=== PATIENT | male | born 1960 | race Caucasian/White ===

== ENCOUNTER 2018-03-25 07:35 | Emergency (ER) | payer MEDICARE ==
[2018-03-25] MEDS ORDERED: Lidocaine 4% Cream 5 GM TUBE w/ Tegaderm ONE (08:33)
[2018-03-25] MEDS ORDERED: Sulfameth/Trimethoprim DS 800-160mg TAB ONE (08:42)
[2018-03-25] MEDS ORDERED: Ketorolac Tromethamine 30 MG/ML VIAL ONE (09:32)
[2018-03-25] MEDS ORDERED: Acetaminophen 500 MG TAB ONE (09:32)
== END 2018-03-25 10:00 | disposition home or self-care (01) ==
LOC: ERS 07:35
DX: J34.0 Abscess, furuncle and carbuncle of nose (principal); L03.211 Cellulitis of face; I10 Essential (primary) hypertension; Z79.899 Other long term (current) drug therapy
CPT/HCPCS: 10060; 96365; 96375; J1885; J2270; J3370

== ENCOUNTER 2018-03-26 08:48 | Emergency (ER) | payer MEDICARE ==
[~2018-03-26 08:48] MED LIST: ISOVUE-370 76%-LOCM 1 ML ONE
[2018-03-26] MEDS ORDERED: Piperacillin/Tazobactam 4.5 GM VIAL ONE (11:51)
[2018-03-26] MEDS ORDERED: Clindamycin/D5W 900 mg/50 ml Premix Bag ONE (11:51)
[2018-03-26 12:03] LABS: #Eosinphils 0.1 thou/uL (0.0-0.7); #Lymphocytes 1.1 thou/uL (1.20-3.40); #Monocytes 0.6 thou/uL (0.11-0.59); #Neutrophils 7.3 thou/uL (1.40-6.50); %Basophils 0.3 % (0.0-1.0); %Eosinophils 0.9 % (0.0-10.0); %Lymphocytes 12.3 % (21.0-51.0); %Monocytes 6.3 % (0.0-10.0); %Neutrophils 80.3 % (42.0-75.0); Hemoglobin 12.8 g/dL (14.0-18.0); Mean Corpuscular HGB CONC 35.5 g/dL (32.0-36.0); Mean Corpuscular Hemoglobin 31.8 pg (27.0-31.0); Mean Corpuscular Volume 89.8 fL (78.0-98.0); Platelet Count 172 thou/uL (130-400); RBC Distribution Width 12.4 % (11.5-14.5); Red Blood Cell (RBC) Count 4.01 mill/uL (4.70-6.10); White Blood Cell (WBC) Count 9.1 thou/uL (4.8-10.8)
[2018-03-26 12:19] LABS: ALT (SGPT) 25 U/L (8-55); AST (SGOT) 17 U/L (5-34); Albumin 4.3 g/dL (3.5-5.0); Alkaline Phosphatase 121 U/L (40-150); Anion Gap 14 mmol/L (10-20); BUN (Urea Nitrogen) 18 mg/dL (8.4-25.7); Bilirubin, Total 0.8 mg/dL (0.2-1.2); Calc. Creatinine Clearance 0 mL/min (70-130); Calcium 9.8 mg/dL (7.8-10.44); Carbon Dioxide 22 mmol/L (22-29); Chloride 101 mmol/L (98-107); Estimated GFR-MDRD 56; Globulin 3.3 g/dL (2.4-3.5); Glucose 98 mg/dL (70-105); Potassium 3.5 mmol/L (3.5-5.1); Protein, Total 7.6 g/dL (6.0-8.3); Sodium 133 mmol/L (136-145)
[2018-03-26 12:29] LABS: Bilirubin Negative (Negative); Blood, Urine Negative (Negative); Clarity CLEAR (Clear); Glucose, Urine (Dipstick) Negative (Negative); Leukocyte Moderate (Negative); Nitrite Negative (Negative); Protein, Urine (Dipstick) Negative (Neg-Trace); Specific Gravity, Urine 1.006 (1.002-1.036); Urobilinogen 0.2 mg/dL (0.2-1.0)
[2018-03-26 12:31] LABS: Bacteria/HPF None Seen HPF (None Seen); Hyaline Casts/LPF 0-3 HYALINE CAST LPF (0-3 Hyaline); RBC/HPF 0-3 HPF (0-3); Squamous Epithelial None Seen HPF (0-3)
--- NOTE | 2018-03-26 14:27 | CT ---
POSTCONTRAST FACE CT: HISTORY: Evaluate for nasal abscess. Symptoms are worsening over time. Reports the abscess began on 03/18. TECHNIQUE: Postcontrast facet CT is performed in the axial plane. Reformatted images are submitted. FINDINGS: There is a small amount of mucosal disease in the right maxillary sinus. There is a mucous retention cyst in the left maxillary sinus. Mild mucosal thickening of the frontal sinuses and the anterior e thmoid air cells. Adequate aeration of the mastoid air cells. Visualized brain parenchyma is unremarkable. Limited evaluation of the oral cavity due to dental amalgam artifact. There does appear to be a soft tissue mass at the level of the tongue base. Direct visualization is recommended. The fatty midlin e raphae of the tongue does appear to be preserved. Symmetric attenuation of the submandibular glands. Symmetric attenuation of the visualized sternocleidomastoid muscles. The visualized great vessels of the neck are patent. There are degenerative changes of the cervical spine. Evaluation is limited a nd incomplete. There is a partially calcified mass occupying the deep lobe of the right parotid gland. Evaluation i s incomplete. There is extensive soft tissue swelling involving the upper lip preseptal soft tissues as well as the soft tissues of the nose. There are 2 separate peripherally enhancing centrally hypodense lesions o f the soft tissues of the nose compatible with a complex abscess. There may be some continuity betwe en these 2 lesions. These lesions separately measure 1.0 x 1.6 and 0.6 x 0.8 cm. No evidence of a n rhonda bone fracture. IMPRESSION: 1. Soft tissue abscesses involving the nasal soft tissues with reactive changes involving the upper lip soft tissues. 2. Partially calcified mass in the deep lobe of the right parotid gland, incompletely evaluated. Th is partially calcified mass measures 2.9 x 1.7 cm. 3. Possible mass in the posterior oral cavity, incompletely evaluated. Direct visualization and ENT consultation is recommended. POS: [facility]
== END 2018-03-26 14:36 | disposition home or self-care (01) ==
LOC: ERS 08:48
DX: J34.0 Abscess, furuncle and carbuncle of nose (principal); I10 Essential (primary) hypertension; Z79.899 Other long term (current) drug therapy
CPT/HCPCS: 36415; 70487; 80053; 81003; 81015; 85025; 87040; 87070; 87077; 87186; 87205; 96365; 96367; 96368; 96375; J2270; J2543; J3370; J3490

== ENCOUNTER 2018-03-26 18:36 | Emergency (ER) | payer MEDICARE ==
[2018-03-26] MEDS ORDERED: Ondansetron ODT 8 MG TAB ONE (20:05)
== END 2018-03-26 20:22 | disposition home or self-care (01) ==
LOC: ERS 18:36
DX: R11.2 Nausea with vomiting, unspecified (principal); F32.9 Major depressive disorder, single episode, unspecified; I10 Essential (primary) hypertension
CPT/HCPCS: 99283

== ENCOUNTER 2021-02-16 19:12 | Inpatient (IN) | payer MEDICARE ==
[2021-02-16 22:14] LABS: #Eosinphils 0.1 thou/uL (0.0-0.7); #Lymphocytes 1.5 thou/uL (1.20-3.40); #Monocytes 0.3 thou/uL (0.11-0.59); #Neutrophils 4.1 thou/uL (1.40-6.50); %Basophils 0.7 % (0.0-1.0); %Eosinophils 1.7 % (0.0-10.0); %Lymphocytes 24.6 % (21.0-51.0); %Monocytes 5.5 % (0.0-10.0); %Neutrophils 67.5 % (42.0-75.0); Hemoglobin 12.1 g/dL (14.0-18.0); Mean Corpuscular HGB CONC 33.6 g/dL (32.0-36.0); Mean Corpuscular Hemoglobin 30.1 pg (27.0-31.0); Mean Corpuscular Volume 89.7 fL (78.0-98.0); Platelet Count 203 thou/uL (130-400); RBC Distribution Width 13.3 % (11.5-14.5); Red Blood Cell (RBC) Count 4.03 mill/uL (4.70-6.10); White Blood Cell (WBC) Count 6.1 thou/uL (4.8-10.8)
[2021-02-16 22:34] LABS: ALT (SGPT) 18 U/L (8-55); AST (SGOT) 19 U/L (5-34); Albumin 3.9 g/dL (3.4-4.8); Alkaline Phosphatase 82 U/L (40-110); Anion Gap 13 mmol/L (10-20); BUN (Urea Nitrogen) 27 mg/dL (8.4-25.7); Bilirubin, Total 0.3 mg/dL (0.2-1.2); Calc. Creatinine Clearance 0 mL/min (70-130); Calcium 9.2 mg/dL (7.8-10.44); Carbon Dioxide 19 mmol/L (23-31); Chloride 111 mmol/L (98-107); Globulin 2.8 g/dL (2.4-3.5); Glucose 97 mg/dL (80-115); Potassium 3.9 mmol/L (3.5-5.1); Protein, Total 6.7 g/dL (5.8-8.1); Sodium 139 mmol/L (136-145)
[2021-02-16] MEDS ORDERED: Fentanyl 100 MCG/2 ML VIAL ONE (22:41)
[2021-02-16] MEDS ORDERED: Ampicillin/Sulbactam 3 GM in Sodium Chloride 0.9% 100 ML IVPB SCH (22:45)
[2021-02-16] MEDS ORDERED: Sodium Chloride 0.9% 0 ML ONE (22:47)
[2021-02-16] MEDS ORDERED: PROPOFOL 200 MG/20 ML VIAL ONE (23:40)
[2021-02-16] MEDS ORDERED: Dexamethasone 20 MG/5 ML VIAL ONE (23:40)
[2021-02-16] MEDS ORDERED: Succinylcholine 200 MG/10 ml SYRINGE FS ONE (23:40)
[2021-02-16] MEDS ORDERED: Lidocaine 1% PF 5 ML VIAL ONE (23:40)
[2021-02-16] MEDS ORDERED: Ondansetron PF 4 MG/2 ML Vial ONE (23:40)
[2021-02-16] MEDS ORDERED: Rocuronium Bromide 10 MG/ML (10ML VIAL) ONE (23:40)
[2021-02-16 23:55] LABS: SARS-CoV-2 NAA Rapid Test Not Detected (NotDetected)
[2021-02-16] MEDS ORDERED: Neomycin-Polymyxin 1 ML AMP ONE (23:56)
[2021-02-16] MEDS ORDERED: Bupivacaine PF 0.5% 30 ML VIAL ONE (23:56)
[2021-02-17] MEDS ORDERED: Fentanyl 100 MCG/2 ML VIAL ONE ×2 (00:40→00:50)
[2021-02-17] MEDS ORDERED: traMADol HCl 50 MG TAB PO PRN (00:42)
[2021-02-17] MEDS ORDERED: Promethazine HCl 25 MG/ML VIAL IM PRN ×2 (00:42→00:58)
[2021-02-17] MEDS ORDERED: Fentanyl 100 MCG/2 ML VIAL SLOW IVP PRN (00:42)
[2021-02-17] MEDS ORDERED: Acetaminophen 325 MG TAB PO PRN (00:42)
[2021-02-17] MEDS ORDERED: Meperidine HCl/PF 25 MG/ML VIAL IM PRN (00:48)
[2021-02-17] MEDS ORDERED: Ondansetron HCl/PF 4 MG/2 ML Vial IVP PRN (00:58)
[2021-02-17] MEDS ORDERED: Promethazine HCl 25 MG/ML VIAL IVPB PRN (00:58)
[2021-02-17] MEDS ORDERED: PACU-Morphine 4MG/ML VIAL SLOW IVP PRN (00:58)
[2021-02-17] MEDS ORDERED: Morphine 4 MG/ML VIAL ONE ×4 (01:57→10:28)
[2021-02-17] MEDS: Lactated Ringer's 1,000 ML IV SCH ×3 (03:22→12:59)
[2021-02-17] MEDS: Sodium Chloride 0.9% 1,000 ML IV SCH ×3 (03:22→21:20)
[2021-02-17] MEDS: Morphine 4 MG/ML VIAL SLOW IVP PRN ×5 (03:48→18:06)
[2021-02-17 05:24] LABS: #Lymphocytes 0.6 thou/uL (1.20-3.40); #Neutrophils 5.5 thou/uL (1.40-6.50); %Basophils 0.2 % (0.0-1.0); %Eosinophils 0.4 % (0.0-10.0); %Lymphocytes 9.9 % (21.0-51.0); %Monocytes 0.7 % (0.0-10.0); %Neutrophils 88.9 % (42.0-75.0); Hemoglobin 11.6 g/dL (14.0-18.0); Mean Corpuscular HGB CONC 35.2 g/dL (32.0-36.0); Mean Corpuscular Hemoglobin 31.6 pg (27.0-31.0); Mean Corpuscular Volume 89.6 fL (78.0-98.0); Mean Platelet Volume 6.8 fL (7.4-10.4); Platelet Count 170 thou/uL (130-400); RBC Distribution Width 13.3 % (11.5-14.5); Red Blood Cell (RBC) Count 3.69 mill/uL (4.70-6.10); White Blood Cell (WBC) Count 6.1 thou/uL (4.8-10.8)
[2021-02-17] MEDS ORDERED: Vancomycin 1 GM in Premix Bag 1 BAG IVPB SCH ×2 (06:00→09:00)
[2021-02-17] MEDS ORDERED: Vancomycin 1 GM/200 ML BAG ONE (06:12)
[2021-02-17] MEDS ORDERED: Aspirin Chewable 81 MG TAB ONE (08:16)
[2021-02-17] MEDS ORDERED: HYDROcodone/Acetaminophen 5/325 mg Tablet ONE (08:24)
[2021-02-17] MEDS: Aspirin 81 mg Enteric Coated Tablet PO SCH ×2 (08:28→20:20)
[2021-02-17] MEDS: HYDROcodone/Acetaminophen 5/325 mg Tablet PO PRN (08:29)
[2021-02-17] MEDS ORDERED: TETANUS AND DIPHTHERIA TOX/PF 0.5 ML DISP.SYRIN IM SCH (09:00)
[2021-02-17 12:53] VITALS: BMI 23.1
[2021-02-17] MEDS: VANCOMYCIN 1.25 GM/250 ML BAG 1.25 GM in Premix Bag 1 BAG IVPB SCH (18:03)
[2021-02-17] MEDS: Ondansetron PF 4 MG/2 ML Vial SLOW IVP PRN (18:07)
[2021-02-17] MEDS: Losartan 25 MG TAB PO SCH (20:19)
[2021-02-17] MEDS: Hydrochlorothiazide 25 MG TAB PO SCH (20:20)
[2021-02-18] MEDS: Lactated Ringer's 1,000 ML IV SCH (04:03)
[2021-02-18] MEDS: VANCOMYCIN 1.25 GM/250 ML BAG 1.25 GM in Premix Bag 1 BAG IVPB SCH ×2 (05:59→17:54)
[2021-02-18] MEDS: Morphine 4 MG/ML VIAL SLOW IVP PRN ×3 (06:05→20:28)
[2021-02-18] MEDS: Sodium Chloride 0.9% 1,000 ML IV SCH ×3 (06:44→22:20)
[2021-02-18] MEDS: Aspirin 81 mg Enteric Coated Tablet PO SCH ×2 (09:15→20:22)
[2021-02-18] MEDS: HYDROcodone/Acetaminophen 5/325 mg Tablet PO PRN ×2 (09:17→17:59)
[2021-02-18 17:52] LABS: Vancomycin, Trough 16.8 ug/mL
[2021-02-18] MEDS: Hydrochlorothiazide 25 MG TAB PO SCH (20:22)
[2021-02-18] MEDS: Losartan 25 MG TAB PO SCH (20:23)
[2021-02-18] MEDS: Gentamicin Sulfate 80 MG in Premix Bag 1 BAG IVPB SCH (21:35)
[2021-02-19] MEDS: Morphine 4 MG/ML VIAL SLOW IVP PRN ×3 (04:18→21:09)
[2021-02-19] MEDS: Gentamicin Sulfate 80 MG in Premix Bag 1 BAG IVPB SCH ×3 (05:00→22:45)
[2021-02-19] MEDS: Aspirin 81 mg Enteric Coated Tablet PO SCH ×2 (08:14→21:09)
[2021-02-19] MEDS ORDERED: Betamet Acet/Betamet Na Ph 30 MG/5 ML VIAL ONE (13:20)
[2021-02-19] MEDS ORDERED: Bacitracin Zinc Ointment 30 gm TUBE ONE ×2 (13:20→18:14)
[2021-02-19] MEDS ORDERED: Bupivacaine PF 0.5% 30 ML VIAL ONE ×2 (13:20→17:47)
[2021-02-19] MEDS: Sodium Chloride 0.9% 1,000 ML IV SCH (13:27)
[2021-02-19] MEDS ORDERED: Fentanyl 100 MCG/2 ML VIAL ONE ×2 (17:00→18:53)
[2021-02-19] MEDS ORDERED: PROPOFOL 200 MG/20 ML VIAL ONE (17:14)
[2021-02-19] MEDS ORDERED: Dexamethasone 20 MG/5 ML VIAL ONE (17:14)
[2021-02-19] MEDS ORDERED: Lidocaine 1% PF 5 ML VIAL ONE (17:14)
[2021-02-19] MEDS ORDERED: Ondansetron PF 4 MG/2 ML Vial ONE (17:14)
[2021-02-19] MEDS ORDERED: Mineral Oil Sterile 10ML 10 ML UDCUP ONE (17:47)
[2021-02-19] MEDS ORDERED: Neomycin-Polymyxin 1 ML AMP ONE (17:47)
[2021-02-19] MEDS ORDERED: Thrombin 5000 UNITS/5 ML VIAL ONE (17:47)
[2021-02-19] MEDS ORDERED: Promethazine HCl 25 MG/ML VIAL IM PRN (18:55)
[2021-02-19] MEDS ORDERED: Promethazine HCl 25 MG/ML VIAL IVPB PRN (18:55)
[2021-02-19] MEDS ORDERED: Ondansetron HCl/PF 4 MG/2 ML Vial IVP PRN (18:55)
[2021-02-19] MEDS: Hydrochlorothiazide 25 MG TAB PO SCH (21:09)
[2021-02-19] MEDS: Losartan 25 MG TAB PO SCH (21:10)
[2021-02-20] MEDS: Sodium Chloride 0.9% 1,000 ML IV SCH ×2 (00:52→09:45)
[2021-02-20] MEDS: Morphine 4 MG/ML VIAL SLOW IVP PRN ×2 (01:21→08:25)
[2021-02-20] MEDS: Ondansetron PF 4 MG/2 ML Vial SLOW IVP PRN (05:31)
[2021-02-20] MEDS: Gentamicin Sulfate 80 MG in Premix Bag 1 BAG IVPB SCH (05:31)
[2021-02-20 07:53] VITALS: BP 152/84; TEMP 97.9
[2021-02-20] MEDS: Aspirin 81 mg Enteric Coated Tablet PO SCH (08:25)
== END 2021-02-20 11:49 | disposition home or self-care (01) | DRG 982 ==
LOC: ERS 19:12 → SJJU 02-17 00:42 → PACU-TCU 02-17 06:24 → SURG A 02-17 11:24 → OBSVTOIN 02-19 16:57
PROVIDERS: ADMIT Orthopaedic Surgery Hand Surgery; ATTEND Orthopaedic Surgery Hand Surgery
PROC: 0R9V0ZZ Drainage of Left Metacarpophalangeal Joint, Open Approach (ICD-10-PCS; principal; 2021-02-16)
PROC: 0RBV0ZZ Excision of Left Metacarpophalangeal Joint, Open Approach (ICD-10-PCS; 2021-02-16)
PROC: 0RBV0ZZ Excision of Left Metacarpophalangeal Joint, Open Approach (ICD-10-PCS; 2021-02-19)
DX: S61.052A Open bite of left thumb without damage to nail, initial encounter (principal); L02.512 Cutaneous abscess of left hand; W55.01XA Bitten by cat, initial encounter; B96.89 Other specified bacterial agents as the cause of diseases classified elsewhere; Z20.822 Contact with and (suspected) exposure to COVID-19; I10 Essential (primary) hypertension; Z90.49 Acquired absence of other specified parts of digestive tract; F32.9 Major depressive disorder, single episode, unspecified
CPT/HCPCS: 36415; 80053; 80202; 85025; 85652; 86140; 87040; 87070; 87077; 87205; 96365; 96366; 96372; 96375; 96376; 99284; G0378; J0295; J0702; J1100; J1580; J1956; J2270; J2405; J2550; J2704; J3010; J3370; J3490; S0020; U0002; U0005

== ENCOUNTER 2021-05-11 10:28 | Outpatient (CLI) | payer MEDICARE | END 2021-05-11 10:29 | disposition home or self-care (01) | LOC: TBSIIMAG 10:28 | PROVIDERS: ATTEND Orthopaedic Surgery Hand Surgery | DX: S63.8X2A Sprain of other part of left wrist and hand, initial encounter (principal) ==

== ENCOUNTER 2021-09-07 12:28 | Inpatient (IN) | payer MEDICARE, OTHER ==
[2021-09-07 13:29] LABS: #Monocytes 0.5 thou/uL (0.11-0.59); #Neutrophils 11.2 thou/uL (1.40-6.50); %Basophils 0.1 % (0.0-1.0); %Eosinophils 0.2 % (0.0-10.0); %Lymphocytes 7.7 % (21.0-51.0); %Monocytes 3.8 % (0.0-10.0); %Neutrophils 88.2 % (42.0-75.0); Hemoglobin 14.9 g/dL (14.0-18.0); Mean Corpuscular Hemoglobin 30.4 pg (27.0-31.0); Mean Corpuscular Volume 89.5 fL (78.0-98.0); Mean Platelet Volume 7.2 fL (7.4-10.4); Platelet Count 167 thou/uL (130-400); RBC Distribution Width 13.3 % (11.5-14.5); Red Blood Cell (RBC) Count 4.89 mill/uL (4.70-6.10); White Blood Cell (WBC) Count 12.7 thou/uL (4.8-10.8)
[2021-09-07] MEDS ORDERED: Ondansetron PF 4 MG/2 ML Vial ONE (13:39)
[2021-09-07] MEDS ORDERED: Morphine 4 MG/ML VIAL ONE (13:39)
[2021-09-07 13:45] LABS: Anion Gap 17 mmol/L (10-20); BUN (Urea Nitrogen) 24 mg/dL (8.4-25.7); Calc. Creatinine Clearance 0 mL/min (70-130); Calcium 9.3 mg/dL (7.8-10.44); Carbon Dioxide 20 mmol/L (23-31); Chloride 107 mmol/L (98-107); Glucose 115 mg/dL (80-115); Potassium 4.2 mmol/L (3.5-5.1); Sodium 140 mmol/L (136-145)
[2021-09-07 15:02] LABS: PTT 26.4 sec (22.9-36.1); Prothrombin Time 13.6 sec (12.0-14.7)
[2021-09-07 15:12] LABS: Magnesium 1.8 mg/dL (1.6-2.6); Phosphorus 2.2 mg/dL (2.3-4.7)
[2021-09-07] MEDS ORDERED: Dextrose 5% in Water 1,000 ML IV PRN (15:24)
[2021-09-07] MEDS ORDERED: Dextrose 50% Abboject 50 ML SYRINGE SLOW IVP PRN (15:24)
[2021-09-07] MEDS ORDERED: Ondansetron PF 4 MG/2 ML Vial IVP PRN (15:24)
[2021-09-07] MEDS ORDERED: hydrALAZINE 20 MG/ML VIAL SLOW IVP PRN (15:24)
[2021-09-07] MEDS ORDERED: traMADol HCl 50 MG TAB PO PRN ×2 (15:27)
[2021-09-07] MEDS ORDERED: Cyclobenzaprine 10 MG TAB PO PRN (15:27)
[2021-09-07] MEDS ORDERED: Sodium Chloride 0.9% 1,000 ML IV SCH (15:30)
[2021-09-07] MEDS ORDERED: Magnesium 2 GM/50 ML(in water) 2 GM in Premix Bag 1 BAG IVPB SCH (16:30)
[2021-09-07] MEDS: Morphine 4 MG/ML VIAL SLOW IVP PRN ×2 (17:08→20:50)
[2021-09-07] MEDS ORDERED: Sodium Phosphate 30 MMOL in Sodium Chloride 0.9% 250 ML 250 ML IVPB SCH (18:00)
[2021-09-07] MEDS: Acetaminophen 500 MG TAB PO SCH (18:04)
[2021-09-07 18:29] LABS: SARS-CoV-2 NAA Rapid Test Not Detected (NotDetected)
[2021-09-07] MEDS: Senokot S 8.6-50 MG TAB PO SCH (20:48)
[2021-09-07] MEDS: Famotidine 20 MG TAB PO SCH (20:49)
[2021-09-07] MEDS: Ibuprofen 200 MG TAB PO SCH (20:49)
[2021-09-07] MEDS: Gabapentin 300 MG CAP PO SCH (20:49)
[2021-09-08] MEDS: Acetaminophen 500 MG TAB PO SCH ×3 (00:02→18:40)
[2021-09-08 00:04] VITALS: BMI 23.8
[2021-09-08] MEDS: Ibuprofen 200 MG TAB PO SCH ×3 (05:51→20:24)
[2021-09-08 05:58] LABS: #Eosinphils 0.1 thou/uL (0.0-0.7); #Lymphocytes 1.4 thou/uL (1.20-3.40); #Monocytes 0.5 thou/uL (0.11-0.59); %Basophils 0.4 % (0.0-1.0); %Eosinophils 1.2 % (0.0-10.0); %Lymphocytes 22.9 % (21.0-51.0); %Monocytes 8.2 % (0.0-10.0); %Neutrophils 67.3 % (42.0-75.0); Hemoglobin 13.3 g/dL (14.0-18.0); Mean Corpuscular HGB CONC 33.9 g/dL (32.0-36.0); Mean Corpuscular Hemoglobin 30.4 pg (27.0-31.0); Mean Corpuscular Volume 89.8 fL (78.0-98.0); Mean Platelet Volume 7.1 fL (7.4-10.4); Platelet Count 138 thou/uL (130-400); RBC Distribution Width 13.3 % (11.5-14.5); Red Blood Cell (RBC) Count 4.37 mill/uL (4.70-6.10); White Blood Cell (WBC) Count 5.9 thou/uL (4.8-10.8)
[2021-09-08] MEDS ORDERED: CEFAZOLIN 2 GM in Sodium Chloride 0.9% 100 ML IVPB SCH (07:30)
[2021-09-08] MEDS ORDERED: ceFAZolin 2 GM/Dextrose 50 ML 2 GM in Premix Bag 1 BAG IVPB SCH (07:30)
[2021-09-08 07:37] LABS: Anion Gap 11 mmol/L (10-20); BUN (Urea Nitrogen) 21 mg/dL (8.4-25.7); Calc. Creatinine Clearance 95 mL/min (70-130); Calcium 8.6 mg/dL (7.8-10.44); Carbon Dioxide 24 mmol/L (23-31); Chloride 107 mmol/L (98-107); Glucose 94 mg/dL (80-115); Magnesium 2.1 mg/dL (1.6-2.6); Sodium 138 mmol/L (136-145)
[2021-09-08] MEDS ORDERED: Vancomycin 1.5 GRAM/300 ML BAG 1.5 GM in Premix Bag 1 BAG IVPB SCH ×2 (09:45→20:00)
[2021-09-08] MEDS ORDERED: Sodium Chloride 0.9% 100 ML ONE (09:54)
[2021-09-08] MEDS ORDERED: Tranexamic Acid 1,000 MG/10 ML VIAL ONE (09:54)
[2021-09-08] MEDS ORDERED: Tranexamic Acid 1,000 MG in Sodium Chloride 0.9% 250 ML 250 ML IVPB SCH (10:00)
[2021-09-08] MEDS ORDERED: Midazolam HCl 2 mg/2 ml Vial ONE (10:25)
[2021-09-08] MEDS ORDERED: Fentanyl 250 MCG/5 ML VIAL ONE (11:04)
[2021-09-08] MEDS ORDERED: ceFAZolin (BATCH) 2 GM/100 ML BAG ONE (11:05)
[2021-09-08] MEDS ORDERED: Lidocaine 1.5% w/Epi 1:200K 30 ML VIAL (Epid Use) ONE (11:13)
[2021-09-08] MEDS ORDERED: PHENYLEPHRINE-NS 100 MCG/ML 10 ML SYRINGE ONE (11:13)
[2021-09-08] MEDS ORDERED: PROPOFOL 200 MG/20 ML VIAL ONE (11:13)
[2021-09-08] MEDS ORDERED: Dexamethasone 20 MG/5 ML VIAL ONE (11:13)
[2021-09-08] MEDS ORDERED: ePHEDrine 50 MG/ML VIAL ONE (11:13)
[2021-09-08] MEDS ORDERED: Lidocaine 1% PF 5 ML VIAL ONE (11:13)
[2021-09-08] MEDS ORDERED: Ondansetron PF 4 MG/2 ML Vial ONE (11:13)
[2021-09-08] MEDS ORDERED: Rocuronium Bromide 10 MG/ML (10ML VIAL) ONE (11:13)
[2021-09-08] MEDS ORDERED: Bupivacaine 0.25% HCL 30 ML VIAL ONE (11:29)
[2021-09-08] MEDS ORDERED: Ondansetron PF 4 MG/2 ML Vial IVP PRN (11:30)
[2021-09-08] MEDS ORDERED: Bupivacaine 0.25% 10 ML VIAL EPIDURAL PRN (11:30)
[2021-09-08] MEDS ORDERED: traMADol HCl 50 MG TAB PO PRN ×2 (11:30)
[2021-09-08] MEDS ORDERED: HYDROcodone/Acetaminophen 5/325 mg Tablet PO PRN ×2 (11:30)
[2021-09-08] MEDS ORDERED: Promethazine HCl 25 MG/ML VIAL IM PRN (11:30)
[2021-09-08] MEDS ORDERED: Naloxone HCl 0.4 mg/ml Vial IVP PRN (11:30)
[2021-09-08] MEDS ORDERED: diphenhydrAMINE 50 MG/ML VIAL IVP PRN (11:30)
[2021-09-08] MEDS ORDERED: Hydrocerin (Eucerin) Cream 120 gm Jar TOP PRN (11:30)
[2021-09-08] MEDS ORDERED: diphenhydrAMINE 25 MG CAP PO PRN (11:30)
[2021-09-08] MEDS ORDERED: Promethazine HCl 25 MG SUPP PR PRN (11:30)
[2021-09-08] MEDS ORDERED: diphenhydrAMINE 50 MG/ML VIAL IM PRN (11:30)
[2021-09-08] MEDS ORDERED: Naloxone HCl 0.4 mg/ml Vial IV PRN (11:30)
[2021-09-08] MEDS ORDERED: Zolpidem Tartrate 5 MG TAB PO PRN (11:30)
[2021-09-08] MEDS: Famotidine 20 MG TAB PO SCH ×2 (11:41→20:24)
[2021-09-08] MEDS: Polyethylene Glycol 3350 17 GM Packet PO SCH (11:41)
[2021-09-08] MEDS: Gabapentin 300 MG CAP PO SCH ×3 (11:41→20:25)
[2021-09-08] MEDS: Senokot S 8.6-50 MG TAB PO SCH ×2 (11:41→20:24)
[2021-09-08] MEDS: Tamsulosin HCl 0.4 MG CAP PO SCH (11:42)
[2021-09-08] MEDS ORDERED: Ropivacaine 0.2% HCl/PF 20 ML ONE (11:42)
[2021-09-08] MEDS ORDERED: Acetaminophen 500 MG TAB PO PRN (12:00)
[2021-09-08] MEDS ORDERED: HYDROcodone/Acetaminophen 5/325 mg Tablet ONE (13:44)
[2021-09-08] MEDS: CEFAZOLIN 2 GM, Admixture Fee 1 EACH in Sodium Chloride 0.9% 100 ML IVPB SCH (18:46)
[2021-09-09] MEDS: Acetaminophen 500 MG TAB PO SCH ×5 (00:22→22:00)
[2021-09-09 05:21] LABS: #Lymphocytes 0.7 thou/uL (1.20-3.40); #Monocytes 0.5 thou/uL (0.11-0.59); #Neutrophils 8.5 thou/uL (1.40-6.50); %Eosinophils 0.2 % (0.0-10.0); %Lymphocytes 7.2 % (21.0-51.0); %Monocytes 5.4 % (0.0-10.0); %Neutrophils 87.1 % (42.0-75.0); Hemoglobin 12.2 g/dL (14.0-18.0); Mean Corpuscular HGB CONC 35.2 g/dL (32.0-36.0); Mean Corpuscular Hemoglobin 31.6 pg (27.0-31.0); Mean Corpuscular Volume 89.8 fL (78.0-98.0); Mean Platelet Volume 7.4 fL (7.4-10.4); Platelet Count 140 thou/uL (130-400); RBC Distribution Width 13.1 % (11.5-14.5); Red Blood Cell (RBC) Count 3.86 mill/uL (4.70-6.10); White Blood Cell (WBC) Count 9.7 thou/uL (4.8-10.8)
[2021-09-09] MEDS: CEFAZOLIN 2 GM, Admixture Fee 1 EACH in Sodium Chloride 0.9% 100 ML IVPB SCH (05:42)
[2021-09-09] MEDS: Ibuprofen 200 MG TAB PO SCH ×3 (05:42→22:01)
[2021-09-09] MEDS: fentaNYL Citrate/PF 500 MCG, Bupivacaine 0.75% 10 ML in Sodium Chloride 0.9% 80 ML EPIDURAL SCH ×2 (05:43→20:35)
[2021-09-09 05:52] LABS: Anion Gap 12 mmol/L (10-20); BUN (Urea Nitrogen) 15 mg/dL (8.4-25.7); Calc. Creatinine Clearance 86 mL/min (70-130); Carbon Dioxide 22 mmol/L (23-31); Chloride 106 mmol/L (98-107); Glucose 148 mg/dL (80-115); Magnesium 1.8 mg/dL (1.6-2.6); Phosphorus 2.9 mg/dL (2.3-4.7); Potassium 4.3 mmol/L (3.5-5.1); Sodium 136 mmol/L (136-145)
[2021-09-09] MEDS ORDERED: Magnesium 2 GM/50 ML(in water) 2 GM in Premix Bag 1 BAG IVPB SCH (08:00)
[2021-09-09] MEDS ORDERED: PHOS-NAK 1 PKT PACK PO SCH (08:00)
[2021-09-09] MEDS: Polyethylene Glycol 3350 17 GM Packet PO SCH (09:38)
[2021-09-09] MEDS: Senokot S 8.6-50 MG TAB PO SCH ×2 (09:39→20:20)
[2021-09-09] MEDS: Aspirin 81 mg Enteric Coated Tablet PO SCH ×2 (09:39→20:21)
[2021-09-09] MEDS: Tamsulosin HCl 0.4 MG CAP PO SCH (09:39)
[2021-09-09] MEDS: Famotidine 20 MG TAB PO SCH ×2 (09:39→20:20)
[2021-09-09] MEDS: Gabapentin 300 MG CAP PO SCH ×3 (09:39→20:21)
[2021-09-10] MEDS: Ibuprofen 200 MG TAB PO SCH ×3 (05:45→21:21)
[2021-09-10] MEDS: Acetaminophen 500 MG TAB PO SCH ×3 (05:45→17:24)
[2021-09-10 06:00] LABS: Hemoglobin 10.9 g/dL (14.0-18.0); Mean Corpuscular HGB CONC 34.4 g/dL (32.0-36.0); Mean Corpuscular Hemoglobin 31.2 pg (27.0-31.0); Mean Corpuscular Volume 90.7 fL (78.0-98.0); RBC Distribution Width 13.3 % (11.5-14.5); Red Blood Cell (RBC) Count 3.49 mill/uL (4.70-6.10); White Blood Cell (WBC) Count 6.3 thou/uL (4.8-10.8)
[2021-09-10 06:18] LABS: #Eosinphils 0.1 thou/uL (0.0-0.7); #Lymphocytes 1.3 thou/uL (1.20-3.40); #Monocytes 0.5 thou/uL (0.11-0.59); #Neutrophils 4.4 thou/uL (1.40-6.50); %Basophils 0.7 % (0.0-1.0); %Eosinophils 1.9 % (0.0-10.0); %Lymphocytes 20.6 % (21.0-51.0); %Monocytes 7.5 % (0.0-10.0); %Neutrophils 69.3 % (42.0-75.0); Mean Platelet Volume 7.3 fL (7.4-10.4); Platelet Count 106 thou/uL (130-400); Platelet Morphology Comment Appears Decreased
[2021-09-10 06:21] LABS: Anion Gap 9 mmol/L (10-20); BUN (Urea Nitrogen) 21 mg/dL (8.4-25.7); Calc. Creatinine Clearance 87 mL/min (70-130); Calcium 8.8 mg/dL (7.8-10.44); Carbon Dioxide 28 mmol/L (23-31); Chloride 105 mmol/L (98-107); Glucose 93 mg/dL (80-115); Magnesium 1.7 mg/dL (1.6-2.6); Phosphorus 3.1 mg/dL (2.3-4.7); Sodium 138 mmol/L (136-145)
[2021-09-10] MEDS ORDERED: Magnesium 2 GM/50 ML(in water) 2 GM in Premix Bag 1 BAG IVPB SCH (08:00)
[2021-09-10] MEDS ORDERED: PHOS-NAK 1 PKT PACK PO SCH (08:00)
[2021-09-10] MEDS: Gabapentin 300 MG CAP PO SCH ×3 (08:21→21:21)
[2021-09-10] MEDS: Aspirin 81 mg Enteric Coated Tablet PO SCH ×2 (08:22→21:21)
[2021-09-10] MEDS: Tamsulosin HCl 0.4 MG CAP PO SCH (08:22)
[2021-09-10] MEDS: Cyanocobalamin (Vitamin B-12) 1,000 MCG TAB PO SCH (08:22)
[2021-09-10] MEDS: Senokot S 8.6-50 MG TAB PO SCH ×2 (08:23→21:20)
[2021-09-10] MEDS: Polyethylene Glycol 3350 17 GM Packet PO SCH (08:23)
[2021-09-10] MEDS: Zinc Sulfate 220 MG CAP PO SCH (08:23)
[2021-09-10] MEDS: Multivit, Therapeutic 1 TAB PO SCH (08:23)
[2021-09-10] MEDS: Famotidine 20 MG TAB PO SCH ×2 (08:23→21:21)
[2021-09-10] MEDS ORDERED: FLU VACC QS2021-22(6MOS UP)/PF 60 MCG/0.5 ML SYRINGE IM ONE (09:00)
[2021-09-10] MEDS ORDERED: Acetaminophen/Codeine 30-300mg Tablet PO PRN (16:07)
[2021-09-10] MEDS: Acetaminophen/Codeine 30-300mg Tablet PO PRN (17:03)
[2021-09-10] MEDS ORDERED: Bisacodyl 10 MG SUPP PR PRN (17:42)
[2021-09-11] MEDS: Acetaminophen 500 MG TAB PO SCH ×3 (00:16→11:16)
[2021-09-11 05:16] LABS: #Basophils 0.1 thou/uL (0.0-0.2); #Eosinphils 0.2 thou/uL (0.0-0.7); #Lymphocytes 1.5 thou/uL (1.20-3.40); #Monocytes 0.6 thou/uL (0.11-0.59); #Neutrophils 4.6 thou/uL (1.40-6.50); %Basophils 0.7 % (0.0-1.0); %Eosinophils 2.5 % (0.0-10.0); %Lymphocytes 22.2 % (21.0-51.0); %Monocytes 8.4 % (0.0-10.0); %Neutrophils 66.1 % (42.0-75.0); Hemoglobin 10.4 g/dL (14.0-18.0); Mean Corpuscular HGB CONC 34.3 g/dL (32.0-36.0); Mean Corpuscular Hemoglobin 31.1 pg (27.0-31.0); Mean Corpuscular Volume 90.7 fL (78.0-98.0); Mean Platelet Volume 7.2 fL (7.4-10.4); Platelet Count 132 thou/uL (130-400); RBC Distribution Width 13.1 % (11.5-14.5); Red Blood Cell (RBC) Count 3.35 mill/uL (4.70-6.10); White Blood Cell (WBC) Count 6.9 thou/uL (4.8-10.8)
[2021-09-11] MEDS: Ibuprofen 200 MG TAB PO SCH ×2 (05:19→14:30)
[2021-09-11] MEDS ORDERED: Magnesium 2 GM/50 ML(in water) 2 GM in Premix Bag 1 BAG IVPB SCH (08:15)
[2021-09-11] MEDS ORDERED: PHOS-NAK 1 PKT PACK PO SCH (08:15)
[2021-09-11] MEDS: Polyethylene Glycol 3350 17 GM Packet PO SCH (08:50)
[2021-09-11] MEDS: Gabapentin 300 MG CAP PO SCH ×2 (08:50→14:30)
[2021-09-11] MEDS: Aspirin 81 mg Enteric Coated Tablet PO SCH (08:51)
[2021-09-11] MEDS: Famotidine 20 MG TAB PO SCH (08:51)
[2021-09-11] MEDS: Cyanocobalamin (Vitamin B-12) 1,000 MCG TAB PO SCH (08:51)
[2021-09-11] MEDS: Tamsulosin HCl 0.4 MG CAP PO SCH (08:51)
[2021-09-11] MEDS: Senokot S 8.6-50 MG TAB PO SCH (08:51)
[2021-09-11] MEDS: Zinc Sulfate 220 MG CAP PO SCH (08:51)
[2021-09-11] MEDS: Multivit, Therapeutic 1 TAB PO SCH (08:51)
[2021-09-11] MEDS: Acetaminophen/Codeine 30-300mg Tablet PO PRN (08:59)
[2021-09-11 12:31] VITALS: BP 146/97; TEMP 98.7
== END 2021-09-11 15:00 | DRG 522 ==
LOC: ERS 12:28 → SURG B 13:53
PROVIDERS: ADMIT Surgery; ATTEND Surgery
PROC: 0SR903Z Replacement of Right Hip Joint with Ceramic Synthetic Substitute, Open Approach (ICD-10-PCS; principal; 2021-09-08)
DX: S72.001A Fracture of unspecified part of neck of right femur, initial encounter for closed fracture (principal); I10 Essential (primary) hypertension; G89.29 Other chronic pain; S92.531A Displaced fracture of distal phalanx of right lesser toe(s), initial encounter for closed fracture; Z20.822 Contact with and (suspected) exposure to COVID-19; M24.542 Contracture, left hand; M24.541 Contracture, right hand; R33.9 Retention of urine, unspecified; W01.0XXA Fall on same level from slipping, tripping and stumbling without subsequent striking against object, initial encounter; Z90.49 Acquired absence of other specified parts of digestive tract; Z98.890 Other specified postprocedural states
CPT/HCPCS: 29125; 29130; 36415; 71045; 72170; 80048; 83735; 84100; 85025; 85610; 85730; 93005; 96374; 96375; C1776; G0390; J0690; J1100; J2001; J2250; J2270; J2405; J2704; J2795; J3010; J3370; J3475; J3490; J7050; S0020; U0002